=== PATIENT | female | born 1970 | race Caucasian/White ===

== ENCOUNTER 2020-05-07 22:24 | Emergency (ER) | payer BC, OTHER ==
[~2020-05-07] VITALS: Ht 157.5 cm; Wt 68.0 kg
--- NOTE | 2020-05-07 22:26 | PHYS DOC ---
Past History Smoking: Cigarettes General Adult HPI: HPI: ".. I feel like I am getting some external otitis.. .. 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 " Patient is a 40 year old female who presents with above hx and complaints bilateral external otitis. Patient has more tenderness in right ear as compared to left ear. Has had this problem before. Patient also complaining of nasal inflammation which in the past has been from MRSA. Patient denies any history of immunosuppression or HIV. Patient denies any travel or specific ill contacts. Patient up-to-date with tetanus. Review of Systems: Review of Systems: Constitutional: Denies fever or chills Eyes: Denies change in visual acuity HENT: Complains of nasal inflammation and bilateral ear pain Respiratory: Denies cough or shortness of breath Cardiovascular: Denies chest pain or edema GI: Denies abdominal pain, nausea, vomiting, bloody stools or diarrhea : Denies dysuria Musculoskeletal: Denies back pain or joint pain Integument: Denies rash Neurologic: Denies headache, focal weakness or sensory changes Endocrine: Denies polyuria or polydipsia Lymphatic: Denies swollen glands Psychiatric: Denies depression or anxiety Family History: Family History: Noncontributory to presentation Current Medications: Current Meds: See nursing for home meds Allergies: Allergies: No known drug allergies Physical Exam: PE: Constitutional: moderate acute distress, non-toxic appearance. [] HENT: Normocephalic, atraumatic, bilateral external ears canals are inflamed and red, TMs are stable. Oropharynx moist, no oral exudates, nose mild injection turbinates] Eyes: PERRLA, EOMI, conjunctiva normal, no discharge. [] Neck: Normal range of motion, no tenderness, supple, no stridor. [] Cardiovascular:Heart rate regular rhythm, no murmur [] Lungs & Thorax: Bilateral breath sounds equal apex with few scattered wheezes on auscultation [] Abdomen: Bowel sounds normal, soft, no tenderness, no masses, no pulsatile masses. [] Skin: Warm, dry, no erythema, no rash. [] Back: No tenderness, no CVA tenderness. [] Extremities: No tenderness, no cyanosis, no clubbing, ROM intact, no edema. [] Neurologic: Alert and oriented X 3, normal motor function, normal sensory function, no focal deficits noted. [] Psychologic: Affect normal, judgement normal, mood normal. [] EKG: EKG: [] Radiology/Procedures: Radiology/Procedures: [] Heart Score: Risk Factors: Risk Factors: DM, Current or recent (<one month) smoker, HTN, HLP, family history of CAD, obesity. Risk Scores: Score 0 - 3: 2.5% MACE over next 6 weeks - Discharge Home Score 4 - 6: 20.3% MACE over next 6 weeks - Admit for Clinical Observation Score 7 - 10: 72.7% MACE over next 6 weeks - Early Invasive Strategies Course & Med Decision Making: Course & Med Decision Making Pertinent Labs and Imaging studies reviewed. (See chart for details) Patient use Cortisporin eardrops 2 drops each ear 4 times a day. Patient avoid water in ears. Patient to use [id number] Polysporin or bacitracin to nose up to 4 times a day. Patient take Bactrim DS twice a day. If unable to take the tablet crushed tablet mixed with food. Patient to follow-up primary care. Patient return if any concerns. Impression: 1. External otitis/cellulitis 2. Nasal inflammation-history of previous nasal MRSA [] Dragon Disclaimer: Dragon Disclaimer: This electronic medical record was generated, in whole or in part, using a voice recognition dictation system. Departure Departure: Referrals: PCP,NO (PCP) Scripts Sulfamethoxazole/Trimethoprim (BACTRIM DS TABLET) 1 Each Tablet 1 TAB PO BID for cellultis for 10 Days, #20 TAB 0 Refills Prov: INES BROWN MD 05/07/20 Dragon Disclaimer This chart was dictated in whole or in part using Voice Recognition software in a busy, high-work load, and often noisy Emergency Department environment. It may contain unintended and wholly unrecognized errors or omissions. INES BROWN MD May 07, 2020 22:26
[2020-05-07] MEDS ORDERED: SULF1TAB24 PO (23:15)
[2020-05-07] MEDS ORDERED: SMZ/TMP 800/160MG TABLET. PO ONE (23:30)
[2020-05-07] MEDS ORDERED: NEOMYCIN/POLYMYXIN/HC OTIC SUSPENSION 10ML BOTTLE. AU ONE (23:30)
[2020-05-07 23:40] VITALS: BP 142/83
== END 2020-05-07 23:40 | disposition home or self-care (01) ==
LOC: ER 22:24
DX: H66.93 Otitis media, unspecified, bilateral (principal); J31.0 Chronic rhinitis; F17.210 Nicotine dependence, cigarettes, uncomplicated
CPT/HCPCS: 99283